=== PATIENT | female | born 1955 | race Caucasian/White ===

== ENCOUNTER 2019-01-15 13:23 | Emergency (ER) | payer OTHER, MEDICARE, MEDICAID ==
[~2019-01-15] VITALS: Ht 160 cm; Wt 97.7 kg
[2019-01-15] MEDS ORDERED: NS 500 ML IV ONE (13:45)
[2019-01-15 14:18] LABS: BASO % 0.4 % (0.0-1.0); EOS # 0.1 10^3/uL (0.0-0.50); EOS % 2.2 % (0.0-3.0); HEMATOCRIT 43.6 % (36.0-47.0); HEMOGLOBIN 14.4 g/dl (12.0-15.5); LYMPH # 1.3 10^3/uL (1.5-4.5); LYMPH % 28.1 % (24.0-44.0); MEAN CORPUSCULAR HEMOGLOBIN 30.9 pg (27.0-33.0); MEAN CORPUSCULAR VOLUME 93.6 fl (80.0-96.0); MONO # 0.5 10^3/uL (0.0-0.8); NEUTROPHILS # 2.7 10^3/uL (1.8-7.7); NEUTROPHILS % 59.1 % (36.0-66.0); PLATELET COUNT, AUTOMATED 269 10^3/uL (150-450); RED BLOOD COUNT 4.66 10^6/uL (4.00-5.40); WHITE BLOOD COUNT 4.6 10^3/uL (4.0-10.0)
[2019-01-15] MEDS ORDERED: ISOVUE-370 76% 100ML VIAL (Q9967) As Ordered ONE (14:23)
[2019-01-15 14:30] LABS: INR 0.94; PROTHROMBIN TIME 12.7 SECONDS (12.1-14.4)
--- NOTE | 2019-01-15 14:38 | REP ---
Clinical: Right knee pain. Technique: Portable AP, lateral, bilateral oblique views of the right knee. Findings: Moderate tricompartmental osteoarthritic degenerative changes include joint space narrowing, chondrocalcinosis, osteophytosis and soft tissue swelling. No acute fracture dislocation. No obvious effusion. Impression: Moderate tricompartmental osteoarthritic degenerative changes. Electronically Signed by Stiven Hampton MD 01/15/2019 02:29 P
[2019-01-15 14:41] LABS: ALT/SGPT 33 U/L (12-78); AMYLASE 55 U/L (25-115); BILIRUBIN,DIRECT 0.1 MG/DL (0.0-0.2); BILIRUBIN,TOTAL 0.4 MG/DL (0.2-1.0); CPK CREATINE PHOSPHOKINASE 271 U/L (26-192); LIPASE 142 U/L (73-393); MB/CK RELATIVE INDEX 1.85 (< OR =4); TOTAL PROTEIN 6.8 GM/DL (6.4-8.2); TROPONIN I < 0.02 NG/ML (< 0.10)
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
--- NOTE | 2019-01-15 14:47 | REP ---
Clinical: Trauma. Technique: Axial noncontrast images from the skull base to the thoracic inlet with coronal and sagittal re-formations. Comparison: 06/14/2015. Findings: Age-related osteopenia and advanced degenerative disc osteophyte complexes are appreciated along with exaggerated lordosis. Findings are relatively stable when compared to 2014. There is no evidence for acute fracture / compression injury or subluxation. Spinal canal appears patent. Posterior elements and spinous processes are intact. Paravertebral soft tissues are within normal limits. Impression: Osteopenia and advanced multilevel degenerative changes. No acute fracture / compression injury or subluxation. Electronically Signed by Stiven Hampton MD 01/15/2019 02:40 P
--- NOTE | 2019-01-15 14:58 | REP ---
Clinical: Trauma. Technique: Axial contrast enhanced images from the thoracic inlet to the upper abdomen with coronal and sagittal re-formations oozing 100 ml Isovue 370 intravenous contrast material. Findings: Bilateral lung cantor are well-aerated and clear. No consolidation/contusion, effusion or pneumothorax. Tracheobronchial tree is patent. Mediastinum demonstrates normal thoracic aorta, pulmonary vasculature and heart/pericardium. No mediastinal injury. Musculoskeletal structures are intact. Impression: No acute mediastinal or pleuroparenchymal process. No evidence for acute injury. Electronically Signed by Stiven Hampton MD 01/15/2019 02:49 P
--- NOTE | 2019-01-15 14:59 | REP ---
Clinical: Trauma. Technique: Axial contrast enhanced images from the lung bases to the pubic symphysis using 100 ml Isovue 370 intravenous contrast material with coronal and sagittal re-formations. Findings: Lung bases are clear. Visualized heart and pericardium normal. No evidence for solid organ injury. Liver, spleen, pancreas, gallbladder, bilateral adrenal glands and kidneys are normal. The enteric system is without obstruction or acute inflammatory process. Normal terminal ileum and appendix identified in the right lower quadrant. Scattered colonic diverticula noted without acute diverticulitis. Pelvis demonstrates normal bladder and age-appropriate uterus/adnexa. No ascites. No free air. No adenopathy. Abdominal aorta and vasculature normal. Musculoskeletal structures demonstrate degenerative changes without evidence for acute injury. Impression: No acute abdominopelvic pathology or trauma/injury. Electronically Signed by Stiven Hampton MD 01/15/2019 02:51 P
[2019-01-15 15:00] VITALS: BP 199/79
[2019-01-15] MEDS ORDERED: ADACEL/BOOSTRIX VACCINE (DIPHTH/PERTUSS/ACELL/TETANUS)0.5ML SYR (90715) IM ONE (16:00)
[2019-01-15] MEDS ORDERED: IBUPROFEN 600 MG TAB PO ONE (16:45)
--- NOTE | 2019-01-15 19:40 | ECGEPIP ---
[facility] - ED Test Date: 2019-01-15 Pat Name: MAYLIN HIDALGO Department: Room: - Gender: Female Behavior Interventionist: FELICIANO : 1955 Requested By: Jagdish Squires Order Number: [id number] Reading MD: Jagdish Squires Measurements Intervals [place] Rate: 55 P: 40 NH: 166 QRS: QRSD: 95 T: 1 QT: 443 QTc: 425 Interpretive Statements SINUS BRADYCARDIA BORDERLINE LEFT AXIS DEVIATION VOLTAGE CRITERIA FOR LVH NONSPECIFIC ST T WAVE CHANGES DELAYED R WAVE PROGRESSION NO OLD ECG FOR COMPARISON Electronically Signed on 01-15-2019 19:40:18 EDT by Jagdish Squires
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
== END 2019-01-15 17:04 | disposition home or self-care (01) ==
LOC: M ED 13:23 → EDBD 13:23 → M ED 17:04
DX: S80.01XA Contusion of right knee, initial encounter (principal); S80.211A Abrasion, right knee, initial encounter; S20.219A Contusion of unspecified front wall of thorax, initial encounter; V49.59XA Passenger injured in collision with other motor vehicles in traffic accident, initial encounter; Y92.410 Unspecified street and highway as the place of occurrence of the external cause; Z88.5 Allergy status to narcotic agent
CPT/HCPCS: 70450; 71045; 71260; 72125; 73564; 74177; 80047; 80076; 82150; 82550; 82553; 83690; 84484; 85025; 85610; 85730; 86850; 86900; 86901; 90471; 90715; 93005; 93041; 94760; 96360; 96361; 99285; Q9967

== ENCOUNTER 2019-04-30 14:13 | Emergency (ER) | payer MEDICARE, MEDICAID ==
[~2019-04-30] VITALS: Ht 157.5 cm; Wt 87.3 kg
[2019-04-30] MEDS ORDERED: ECOT81TA5 PO (14:27)
[2019-04-30 14:53] LABS: BASO % 0.8 % (0.0-1.0); EOS # 0.1 10^3/uL (0.0-0.5); EOS % 2.4 % (0.0-3.0); HEMATOCRIT 41.1 % (36.0-47.0); HEMOGLOBIN 13.5 g/dl (12.0-15.5); LYMPH # 1.2 10^3/uL (1.5-5.0); LYMPH % 24.2 % (24.0-44.0); MEAN CORPUSCULAR HEMOGLOBIN 30.4 pg (27.0-33.0); MEAN CORPUSCULAR HGB CONC 32.8 g/dl (32.0-36.5); MEAN CORPUSCULAR VOLUME 92.6 fl (80.0-96.0); MONO # 0.3 10^3/uL (0.0-0.8); MONO % 6.4 % (0.0-5.0); NEUTROPHILS # 3.3 10^3/uL (1.5-8.5); PLATELET COUNT, AUTOMATED 287 10^3/uL (150-450); RED BLOOD COUNT 4.44 10^6/uL (4.00-5.40)
[2019-04-30 15:21] LABS: BLOOD UREA NITROGEN 20 MG/DL (7-18); CALCIUM LEVEL 8.6 MG/DL (8.8-10.2); CARBON DIOXIDE LEVEL 29 MEQ/L (21-32); CHLORIDE LEVEL 108 MEQ/L (98-107); CPK CREATINE PHOSPHOKINASE 161 U/L (26-192); CREATININE FOR GFR 1.08 MG/DL (0.55-1.30); GLOMERULAR FILTRATION RATE 54.2 (>45); GLUCOSE, FASTING 120 MG/DL (70-100); MB/CK RELATIVE INDEX 2.48 (< OR =4); POTASSIUM SERUM 3.7 MEQ/L (3.5-5.1); SODIUM LEVEL 142 MEQ/L (136-145); THYROID STIMULATING HORMONE 0.671 uIU/ML (0.358-3.740); TROPONIN I < 0.02 NG/ML (< 0.10)
[2019-04-30 15:45] VITALS: BP 152/74
[2019-04-30] MEDS ORDERED: HOLTER MONITOR XX (15:48)
--- NOTE | 2019-04-30 19:45 | REP ---
REASON: Cardiac symptoms. COMPARISON: 01/15/2019 The technique utilized in obtaining the radiograph has magnified the cardiac silhouette and accentuated the interstitial markings. The cardiac silhouette is mildly enlarged but accentuated by technique. The lung cantor are clear and unchanged. The pleural angles are sharp. The osseous structures are stable and intact. IMPRESSION:Mild cardiomegaly as expected but accentuated by technique. There is no evidence of acute cardiopulmonary disease. Electronically Signed by Bridger Melgar DO 05/01/2019 10:44 A
--- NOTE | 2019-05-02 04:20 | ECGEPIP ---
[facility] - ED Test Date: 2019-04-30 Pat Name: MAYLIN HIDALGO Department: Room: - Gender: Female Senior Sales Manager: SANTHOSH : 1955 Requested By: Tera Jay Order Number: [id number] Reading MD: Tera Dennis Measurements Intervals [place] Rate: 51 P: 53 DE: 171 QRS: -25 QRSD: 100 T: -6 QT: 454 QTc: 422 Interpretive Statements SINUS BRADYCARDIA VOLTAGE CRITERIA FOR LVH NSTTW ABNORMALITIES SIMILAR TO 01/15/19 Electronically Signed on 05-02-2019 4:19:56 EDT by Tera Dennis
== END 2019-04-30 16:02 | disposition home or self-care (01) ==
LOC: M ED 14:13
DX: R00.2 Palpitations (principal); R07.9 Chest pain, unspecified; I51.7 Cardiomegaly; Z87.19 Personal history of other diseases of the digestive system; Z86.010 Personal history of colon polyps; Z88.5 Allergy status to narcotic agent; Z79.82 Long term (current) use of aspirin

== ENCOUNTER → 2019-05-02 | Outpatient (CLI) | payer MEDICARE, MEDICAID ==
[~2019-05-02] MED LIST: ECOT81TA5 PO; HOLTER MONITOR XX
--- NOTE | 2019-05-06 17:36 | HOLTMON ---
[facility] Test Date: 2019-05-02 Pat Name: MAYLIN HIDALGO Department: Room: - Gender: Female [employer] Developer: Tamy Guajardo/RANHCO GUO : 1955 Requested By: Tera Jay Order Number: [id number] Reading MD: Etienne Rehman Interpretive Statements Patient had a 24 hour Holter monitor for palpitations with minimal artifact. Underlying rhythm was sinus with a rate from 44-109 beats per minute. Average rate was 58 beats per minute. There were no significant pauses. The patient had 29 ventricular beats. The patient had 71 supraventricular beats with 53 singlets, 5 pairs, and 1 run of 8 beats at a rate 109 beats per minute. The event diary was notable 2 episodes of palpitations, an episode of dizzyness and an episode of shortness of breath. The events were associated with sinus rhythm with rate varying from 55-76 beats per minute. There is no obvious cause for the patient's symptoms on this 24 hour Holter monitor. If there is concern for arrythmia consider event or loop recorder. If there is concern for ischemia, consider appropriate diagnostic testing. Electronically Signed on 05-06-2019 17:36:32 EDT by Etienne Rehman
== END ==
LOC: M EKG 13:30
PROVIDERS: ATTEND Emergency Medicine
DX: R00.2 Palpitations (principal)

== ENCOUNTER → 2019-05-15 | Outpatient (REF) | payer MEDICARE, MEDICAID | LOC: M LAB REF 15:48 | PROVIDERS: ATTEND Physician Assistant Medical | DX: R19.7 Diarrhea, unspecified (principal) ==